=== PATIENT | female | born 1970 | race Asian ===

== ENCOUNTER → 2024-01-10 15:19 | Outpatient (REF) | payer OTHER, SELFPAY | LOC: MRI 3T 15:19 | PROVIDERS: ATTENDING PHYSICIAN Specialist; FAMILY PHYSICIAN Family Medicine | DX: M50.322 Other cervical disc degeneration at C5-C6 level (principal) | CPT/HCPCS: 72141 ==

== ENCOUNTER → 2024-11-24 08:45 | Outpatient (REF) | payer OTHER, SELFPAY | LOC: RAD 08:45 | PROVIDERS: ATTENDING PHYSICIAN Specialist | DX: M75.02 Adhesive capsulitis of left shoulder (principal) | CPT/HCPCS: 73030 ==

== ENCOUNTER → 2024-12-02 11:28 | Outpatient (REF) | payer OTHER, SELFPAY | LOC: PAVMRI 11:28 | PROVIDERS: ATTENDING PHYSICIAN Specialist; FAMILY PHYSICIAN Family Medicine | DX: M75.02 Adhesive capsulitis of left shoulder (principal) | CPT/HCPCS: 73221 ==